=== PATIENT | male | born 1960 | race Caucasian/White ===

== ENCOUNTER 2016-07-20 07:19 | Inpatient (IN) | payer OTHER ==
[2016-07-07 14:22] VITALS: BMI 33.0
--- NOTE | 2016-07-07 14:54 | PAT Medication Instructions ---
Service Date July 07, 2016. Current Home Medication List Diphenhydramine Hcl (Benadryl Allergy), 50 MG PO HS Ibuprofen (Motrin), 3 TAB PO BID PRN for Pain Multiple Vitamin (Multi Vitamin), 1 TAB PO QAM Venlafaxine Hcl (Venlafaxine Hcl Er), 1 TAB PO QAM [legatrim], Unknown Dose PO QPM Medication Instructions For Your Scheduled Surgery - Hold the following medications 24 hours prior to surgery: [legatrim], Unknown Dose PO QPM - Hold the following medications the morning of surgery: Ibuprofen (Motrin), 3 TAB PO BID PRN for Pain (otherwise okay to continue per surgeon) Multiple Vitamin (Multi Vitamin), 1 TAB PO QAM - Take the following medications the morning of surgery with a sip of water OTHERWISE NOTHING TO EAT OR DRINK AFTER MIDNIGHT: Venlafaxine Hcl (Venlafaxine Hcl Er), 1 TAB PO QAM - Take the following medications as scheduled the night before surgery: Ibuprofen (Motrin), 3 TAB PO BID PRN for Pain Diphenhydramine Hcl (Benadryl Allergy), 50 MG PO HS If you have any questions please call us at [phone] or [phone] or [phone]
[2016-07-07 15:21] LABS: BASO % 0.6 %; BASO ABS # 0.03 K/uL (0-0.2); COMPLETE YES; EOS % 2.3 %; HEMATOCRIT 44.2 % (42-52); IG% 0.4 %; LYMPH % 31.7 %; LYMPH ABS # 1.52 K/uL (1.2-3.4); MEAN CELL VOLUME 80.8 fL (80-100); MEAN CORPUSCULAR HEMOGLOBIN 28.5 pg (25-34); MEAN CORPUSCULAR HGB CONC 35.3 g/dl (32-36); MEAN PLATELET VOLUME 8.9 fL (7.4-10.4); MONO % 12.1 %; NEUT % 52.9 %; PLATELET COUNT 193 K/uL (130-400); RED BLOOD COUNT 5.47 M/uL (4.7-6.1); URINE APPEARANCE CLEAR (CLEAR); URINE BILIRUBIN NEG (NEG); URINE COLOR YELLOW; URINE NITRITE NEG (NEG); UROBILINOGEN NEG (NEG)
[2016-07-07 15:26] LABS: MANUAL MICROSCOPIC REQUIRED? NO; REVIEW REQ? NO
[2016-07-07 15:34] LABS: PROTHROMBIN TIME (PATIENT) 10.4 SECONDS (9.0-12.0)
[2016-07-07 15:40] LABS: BUN/CREATININE RATIO 11.1 (10-20); CALCIUM 9.2 mg/dl (8.5-10.1); CREATININE 1.1 mg/dl (0.60-1.40); POTASSIUM 4.3 mmol/L (3.5-5.1)
--- NOTE | 2016-07-07 15:45 | DIAGNOSTIC IMAGING REPORT ---
CHEST PREADMISSION(PA/LAT) CLINICAL HISTORY: PAT preoperative evaluation COMPARISON STUDY: No previous studies for comparison. FINDINGS: The bones soft tissues and hemidiaphragms are normal. The cardiomediastinal silhouette is normal. The lungs are clear. The pulmonary vasculature is normal. IMPRESSION: Negative chest. Electronically signed by: Kal Da Silva M.D. 07/07/2016 3:44 PM Dictated Date/Time: 07/07/2016 3:43 PM
--- NOTE | 2016-07-19 09:47 | HISTORY & PHYSICAL EXAMINATION ---
DATE OF ADMISSION: 07/20/2016 CHIEF COMPLAINT: Back and lower extremity difficulty. Working diagnosis degenerative disc at L5-S1, scheduled for PLIF procedure L5-S1. He has failed all conservative measures, injections, physical therapy, anti-inflammatories, brace treatment, chiropractic treatments. HISTORY OF PRESENT ILLNESS: He has had 4-year duration of pain, visual analog scale 0 to 10. He rates his pain as an 8. There are no red flags for fevers, sweats, chills, or carcinoma. PAST SURGICAL HISTORY: Femur surgery, appendectomy. PAST MEDICAL HISTORY: Anxiety. ALLERGIES: Negative. CURRENT MEDICATIONS: Ibuprofen, Zanaflex and vitamins. REVIEW OF SYSTEMS: Denies any blurred vision, double vision, tinnitus, vertigo. Denies chest pain, palpitations, asthma, wheezing, shortness of breath. No nausea, vomiting. No urgency, frequency, dysuria. Major musculoskeletal chief complaint of back and lower extremity difficulty. OBJECTIVE: GENERAL: He is 5'11, 230. He is in distress. VITAL SIGNS: Blood pressure 140/80, pulse of 80, respiration rate 16. HEAD, EYES, EARS, NOSE, AND THROAT: Pupils react to light and accommodation. Ear, nose and throat clear. CARDIAC: Normal S1, S2, no S3. LUNGS: Clear to auscultation. No rales, rhonchi or wheezing. ABDOMEN: Soft, nontender, no referred pain. No masses or organomegaly. NEUROLOGIC: Intact, 5/5 strength, good sensation, motor ability to all extremities. PSYCHIATRIC: Mentation normal. No depression. He has pain with flexion, extension range of the spine, decrease about 60% per normal. Pain with side bending pain with rotation. Images reviewing demonstrate Modic changes L5-S1, degenerative changes L5-S1. IMPRESSION: Degenerative disc disease L5-S1. DISPOSITION: Includes a PLIF procedure, L5-S1 lumbar spine [facility] on 07/20/2016.
[~2016-07-20] VITALS: Ht 180.3 cm; Wt 109.5 kg
[2016-07-20] VITALS (9 sets, daily range): BP systolic 90–152; BP diastolic 54–96; PULSE 57–102; TEMP 36.4–37; O2SAT 94–100; Ht 180.3 cm; Wt 109.5 kg
[~2016-07-20 07:19] MED LIST: CEFAZOLIN 2000 MG/60 ML D5W 60 ML IV SCH; DIPH1TAB87 PO; IBUP-1428 PO; LACTATED RINGER'S 1000ML 1,000 ML IV SCH; MULT-1027 PO; NSS 1000ML IV SCH; VENL150T33 PO; [UNRECOGNIZED DRUG - OTHER] PO
[2016-07-20] MEDS ORDERED: FENTANYL CITRATE INJ 50 MCG/1 ML 2 ML VIAL ONE ×2 (08:06)
[2016-07-20] MEDS ORDERED: MIDAZOLAM HCL 1 MG/ML 2ML VIAL ONE (08:06)
[2016-07-20] MEDS ORDERED: LACTATED RINGER'S 1000ML 1,000 ML IV PRN (08:31)
[2016-07-20] MEDS ORDERED: ONDANSETRON INJ 2 MG/ML 2 ML VIAL IV PRN ×2 (08:45→13:15)
[2016-07-20] MEDS ORDERED: VANCOMYCIN HCL 1000MG/20ML VIAL ONE (10:29)
[2016-07-20] MEDS ORDERED: GELATIN SPONGE SZ 100 ONE ×2 (10:29→12:06)
[2016-07-20] MEDS ORDERED: BUPIVACAINE/EPINEPHRINE 0.5% MPF 1:200,000 30 ML VIAL ONE (10:29)
[2016-07-20] MEDS ORDERED: BACITRACIN 50000 UNIT VIAL ONE (10:29)
[2016-07-20] MEDS ORDERED: THROMBIN FOR SOLN 20000 UNIT KIT ONE (10:29)
--- NOTE | 2016-07-20 10:44 | History & Physical Bridge Note ---
H&P Re-Evaluation Bridge Note: I have examined the patient, reviewed the History & Physical and in the interval since the performance of the History & Physical I have noted the following changes of clinical significance: No changes noted
[2016-07-20] MEDS ORDERED: LIDOCAINE HCL 2% 2 ML VIAL (20MG/ML) ONE (11:37)
[2016-07-20] MEDS ORDERED: NEOSTIGMINE METHYLSULFATE 5 MG/5 ML SYR ONE (11:37)
[2016-07-20] MEDS ORDERED: DEXAMETHASONE SOD INJ 4 MG/ML VIAL ONE (11:37)
[2016-07-20] MEDS ORDERED: GLYCOPYRROLATE INJ 0.2 MG/ML VIAL ONE (11:37)
[2016-07-20] MEDS ORDERED: ONDANSETRON INJ 2 MG/ML 2 ML VIAL ONE (11:37)
[2016-07-20] MEDS ORDERED: ROCURONIUM BROMIDE 10 MG/ML 5 ML VIAL ONE ×2 (11:37→12:27)
[2016-07-20] MEDS ORDERED: PROPOFOL IV EMULSION 10 MG/ML 20 ML VIAL IV ONE (11:37)
[2016-07-20] MEDS ORDERED: HYDROmorphone INJ 2 MG/ML SYR/VIAL ONE (11:38)
[2016-07-20] MEDS ORDERED: LARYING-O-JET KIT (LTA) ONE ×2 (11:43)
[2016-07-20] MEDS ORDERED: EpHEDrine SULFATE 50MG/5ML SYR ONE (11:49)
--- NOTE | 2016-07-20 13:00 | DIAGNOSTIC IMAGING REPORT ---
INTRAOPERATIVE RADIOGRAPH CLINICAL HISTORY: L5-S1 spinal fusion. Fluoroscopy time: 5 seconds. FINDINGS: A single spot fluoroscopic view of the lumbar spine is presented. There is evidence of discectomy at L5-S1 with laminectomy and posterior fusion at this level. Interpedicular screws are present at both levels. The orthopedic hardware is intact as visualized. IMPRESSION: Intraoperative image from L5 -S1 spinal fusion as above. Electronically signed by: Tunde Castro M.D. 07/20/2016 12:59 PM Dictated Date/Time: 07/20/2016 12:58 PM
[2016-07-20] MEDS ORDERED: IBUPROFEN 800 MG TAB PO PRN (13:15)
[2016-07-20] MEDS ORDERED: LORAZEPAM 1 MG TAB PO PRN (13:15)
[2016-07-20] MEDS ORDERED: MAGNESIUM HYDROXIDE SUSP 30 ML UDC PO PRN (13:15)
[2016-07-20] MEDS ORDERED: PROMETHAZINE HCL INJ 12.5 MG in SODIUM CHLORIDE 0.9% 50ML 50 ML IV PRN (13:15)
[2016-07-20] MEDS ORDERED: ACETAMINOPHEN 325 MG TAB PO PRN (13:15)
[2016-07-20] MEDS ORDERED: LORAZEPAM INJ 1 MG in SYRINGE 0 ML IV PRN (13:15)
[2016-07-20] MEDS ORDERED: METOCLOPRAMIDE HCL INJ 5 MG/ML 2 ML VIAL IV PRN (13:15)
[2016-07-20] MEDS ORDERED: NALOXONE HCL 0.4 MG/1 ML VIAL/CARP IV PRN (13:15)
[2016-07-20] MEDS ORDERED: SODIUM CHLORIDE 0.9% 1000ML 1,000 ML IV SCH (13:15)
--- NOTE | 2016-07-20 13:18 | [facility] Post Operative Brief Note ---
Immediate Operative Summary Operative Date Jul 20, 2016. Pre-Operative Diagnosis Degenerative Disc Disease L5-S1 Post-Operative Diagnosis Degenerative Disc Disease L5-S1 Procedure(s) Performed L5-S1 Posterior Lumbar Interbody Fusion Surgeon Dr. Kaushik Dillon Data Capture Specialist Surgeon(s) Joel Paez PA-C Estimated Blood Loss 100ML Findings degenerative disc Specimens none per surgeon Dr. Kaushik Dillon Complication(s) None Disposition Recovery Room / PACU
[2016-07-20] MEDS ORDERED: HYDROmorphone HCL 0.5MG/ML 50 ML CASSETTE ONE (13:26)
[2016-07-20] MEDS: FENTANYL CITRATE INJ 50 MCG/1 ML 2 ML VIAL IV PRN ×2 (13:27→13:35)
[2016-07-20] MEDS: HYDROmorphone INJ 1 MG/ML SYR IV PRN ×2 (13:46→13:53)
[2016-07-20 13:51] LABS: HEMATOCRIT 40.2 % (42-52)
--- NOTE | 2016-07-20 14:23 | OPERATIVE REPORT ---
DATE OF OPERATION: 07/20/2016 PREOPERATIVE DIAGNOSIS: Degenerative disc disease and bulging disc lumbar spine with instability lumbar spine. POSTOPERATIVE DIAGNOSIS: Same. PROCEDURE: Include post-lumbar interbody fusion L5-S1 lumbar spine. SURGEON: Dr. Dillon. TAX SPECIALIST: Joel Paez PA-C. COMPLICATIONS: Zero. BLOOD LOSS: 100 mL. OPERATION AND FINDINGS: PROCEDURE: The patient was taken the operating room and general intubated anesthetic provided the patient, placed prone, shaved, scrubbed, prepped sterile. We made a skin incision from 4 to the sacrum, down about sacral 2 segment dissecting soft tissue. We took the soft tissue out over the facet joints at L5-S1 on the transverse processes and 5 bilaterally. We then did the decompression part of procedure. We did a complete laminectomy at 5, foraminotomies and partial facetectomies. We then instrumented spine safely and pedicle screw instrumentation L5 and S1 on the lumbar spine using C-arm guidance and anatomic markers to orient our pedicle screws. The fit was anatomic. We then retracted the dura and the nerve root over on the left hand side and did a discectomy and prepared the interspace for interbody fusion. We broached up to a size 9. We then put in a implant, typically called a cage polyethylene ketone spacer, packed with autograft and demineralized bone matrix. We then checked our r x-rays and was excellent. We then irrigated with about 500 mL of fluid, packed bone graft over the transverse process to complete at 360 fusion. We put some vancomycin deep to the wound. We closed fascia to fascia with 1 Vicryl suture, 2-0 in a subcuticular layer, 3-0 nylon on the skin, sterile dressing applied. This was also closed over a Hemovac drain. The patient was then returned supine, extubated to PACU stable. No apparent interoperative complications as stated. Sponge and needle count correct at the close of the procedure. I attest to the content of the Intraoperative Record and any orders documented therein. Any exception s are noted below.
[2016-07-20] MEDS: HYDROmorphone HCL 0.5MG/ML 50 ML CASSETTE IV PRN ×2 (14:45→22:53)
--- NOTE | 2016-07-20 14:52 | Anesthesiology Progress Note ---
Anesthesia Post Op Note Date & Time Jul 20, 2016 at 14:51 Vital Signs Pain Intensity: 0.0 Vital Signs Past 12 Hours Date Time Temp Pulse Resp B/P (MAP) Pulse Ox O2 Delivery O2 Flow Rate FiO2 07/20/16 14:44 36.8 62 18 126/71 (89) 97 Nasal Cannula 2.0 07/20/16 14:29 59 98 07/20/16 14:29 60 12 07/20/16 14:28 133/82 07/20/16 14:24 65 10 07/20/16 14:24 66 10 99 07/20/16 14:22 142/83 07/20/16 14:19 58 07/20/16 14:19 58 10 98 07/20/16 14:18 145/88 07/20/16 14:14 66 12 07/20/16 14:14 63 12 93 07/20/16 14:13 58 16 07/20/16 14:13 58 16 156/80 98 07/20/16 14:08 57 07/20/16 14:08 58 148/76 97 07/20/16 14:03 83 22 138/49 95 07/20/16 14:03 82 22 07/20/16 13:58 63 07/20/16 13:58 65 16 130/59 97 07/20/16 13:57 36.5 07/20/16 13:55 59 16 97 07/20/16 13:55 60 07/20/16 13:53 122/68 07/20/16 13:50 77 14 07/20/16 13:50 79 14 97 07/20/16 13:48 131/59 07/20/16 13:45 57 14 100 07/20/16 13:45 57 07/20/16 13:42 148/77 07/20/16 13:40 60 16 100 07/20/16 13:40 60 07/20/16 13:35 56 14 100 07/20/16 13:35 57 07/20/16 13:32 124/75 07/20/16 13:30 62 8 98 07/20/16 13:30 62 8 07/20/16 13:27 131/71 07/20/16 13:25 80 16 128/62 100 Mask 10 07/20/16 13:25 64 9 97 6/8/17 13:25 64 9 07/20/16 13:24 129/75 07/20/16 13:15 36.5 87 16 126/69 98 Mask 10 07/20/16 07:55 36.6 57 18 152/96 (114) 100 Room Air Notes Mental Status: alert / awake / arousable, participated in evaluation Pt Amnestic to Procedure: Yes Nausea / Vomiting: adequately controlled Pain: adequately controlled Airway Patency, RR, SpO2: stable & adequate BP & HR: stable & adequate Hydration State: stable & adequate Anesthetic Complications: no major complications apparent Pt doing well.
[2016-07-20] MEDS: KETOROLAC TROMETHAMINE 30 MG/ML VIAL IV SCH ×2 (16:06→22:06)
[2016-07-20] MEDS: SODIUM CHLORIDE 0.9% 1000ML 1,000 ML IV SCH (16:06)
[2016-07-20] MEDS: CEFAZOLIN IV 2,000 MG in DEXTROSE 5% 50ML 50 ML IV SCH (18:46)
[2016-07-20] MEDS: DEXAMETHASONE INJ 10 MG in SYRINGE 0 ML IV SCH (19:49)
[2016-07-20] MEDS ORDERED: COUGH DROP (SUGAR FREE) LOZ 24 LOZ/1 BOX ONE (22:29)
[2016-07-20] MEDS ORDERED: COUGH DROP (SUGAR FREE) LOZ 24 LOZ/1 BOX PO PRN (22:45)
[2016-07-21] VITALS (7 sets, daily range): BP systolic 105–138; BP diastolic 58–73; PULSE 68–86; TEMP 36.7–36.8; O2SAT 92–97
[2016-07-21] MEDS: CEFAZOLIN IV 2,000 MG in DEXTROSE 5% 50ML 50 ML IV SCH ×2 (03:05→12:07)
[2016-07-21] MEDS: SODIUM CHLORIDE 0.9% 1000ML 1,000 ML IV SCH (03:06)
[2016-07-21] MEDS: DEXAMETHASONE INJ 10 MG in SYRINGE 0 ML IV SCH ×3 (03:58→19:52)
[2016-07-21] MEDS: KETOROLAC TROMETHAMINE 30 MG/ML VIAL IV SCH ×3 (03:58→15:09)
[2016-07-21] MEDS ORDERED: BISACODYL 10 MG SUPP PR PRN (06:00)
[2016-07-21] MEDS ORDERED: BISACODYL 5 MG TABEC PO PRN (06:00)
[2016-07-21] MEDS: HYDROmorphone HCL 0.5MG/ML 50 ML CASSETTE IV PRN (06:53)
[2016-07-21] MEDS ORDERED: NURSING VERBAL MED ORDER ONE (07:30)
[2016-07-21] MEDS ORDERED: HYDROmorphone INJ 1 MG/ML SYR IV PRN ×2 (08:00)
[2016-07-21] MEDS ORDERED: OXYCODONE/ACETAMINOPHEN 5-325 TAB PO PRN (08:00)
[2016-07-21] MEDS ORDERED: DC PCA ONE (08:00)
--- NOTE | 2016-07-21 08:06 | PROGRESS NOTE ---
DATE: 07/21/2016 DATE: 07/21/2016. SUBJECTIVE: Moderate complaints of pain. No lower extremity difficulty. Denies chest pain, shortness of breath, any confusion, weakness. OBJECTIVE: Vital signs stable, 40.2 hematocrit, moves all extremities. Alert, oriented. ASSESSMENT: Status post lumbar spinal fusion, posterior lumbar interbody fusion at L5-S1, doing well in the short run. DISPOSITION: Includes ambulation here today, discharge home tomorrow. Instructions, precautions provided.
[2016-07-21] MEDS: POLYETHYLENE (MIRALAX) 17 GM PACK PO SCH (09:00)
[2016-07-21] MEDS: MULTIVITAMIN TAB PO SCH (09:06)
[2016-07-21] MEDS: VENLAFAXINE HCL XR 150 MG CAPXR PO SCH (09:06)
[2016-07-21] MEDS: OXYCODONE/ACETAMINOPHEN 5-325 TAB PO PRN ×2 (13:10→18:11)
[2016-07-22] MEDS: OXYCODONE/ACETAMINOPHEN 5-325 TAB PO PRN ×2 (00:32→08:41)
[2016-07-22] MEDS: DEXAMETHASONE INJ 10 MG in SYRINGE 0 ML IV SCH (03:58)
[2016-07-22 06:36] VITALS: BP 152/89; PULSE 81; TEMP 36.4; O2SAT 96
--- NOTE | 2016-07-22 08:09 | Discharge Instructions ---
Discharge Instructions Date of Service Jul 22, 2016. Admission Reason for Admission: Intervertebral Disc Disorder Discharge Discharge Diagnosis / Problem: as above Discharge Goals Goal(s): Improve function Activity Recommendations Activity Limitations: as noted below Lifting Limitations: until after follow-up appointment Exercise/Sports Limitations: until after follow-up appointment May Resume Sexual Activity: after follow-up appointment Shower/Bathe: keep incision dry . Instructions / Follow-Up Instructions / Follow-Up MEDICATIONS: Please take your prescriptions as instructed at your pre-op appointment. SPECIAL CARE: The following information is intended to answer some of the common questions and concerns regarding your surgery. Each patient is an individual and receives individual counselling throughout the course of treatment, from diagnosis to surgery all the way through recovery. What follows is not an exhaustive list, but should be a useful guide to some of the common questions and concerns patients have regarding their surgeries. These are not provided to keep you from calling us; rather, they give you something accurate and concrete to reference as you recover from your procedure. If you need us, we are available to you. As always, if you are not sure about something, call us at [phone]. MEDICAL EMERGENCIES: For these conditions, call 911 or go to your local hospital-based Emergency Department - not [facility] or equivalent. * Paralysis * Severe chest pain or difficulty breathing * Swelling or redness of either leg Spine procedures can be rather complex and though complications are rare, they do occur. In such cases, effective advice regarding emergency situations cannot always be addressed over the telephone. You may be referred to the emergency department for more effective management of your problem. Activity Limitations: It is important to give your body time to heal, so please limit your activities : * In general, don't do anything that moves your spine too much. You should avoid contact sports, twisting or heavy lifting while you recover. * 5-10 pounds is all you should attempt to lift. * You should not plan on driving for approximately 3 weeks and you should avoid traveling more than 30-45 minutes at a time. Longer trips should be broken down with walking breaks spaced appropriately. * Physical therapy is not usually required. * Walking and good posture practices will help you recover and regain your function. * Avoid straining or sudden changes in position. * In general, the goal is to take it easy and recover. Don't cause any new problems. Just relax. Showers: * Do not take a bath, use a Jacuzzi or hot tub or otherwise submerge your incision. * It is usually safe to take a shower 4-5 days after your surgery. * Your incision does not require any special creams or ointments. * Simply clean it with soap and water, dry and re-dress with a clean bandage afterwards. Incision: * Keep incision clean, dry and protected until your first follow-up appointment. * Some amount of drainage and redness is normal. Any drainage should be fairly clear and not have a foul odor. * If you feel anything is wrong or you have excessive drainage, please call us. * Your stitches and jose elias will be removed 10-14 days after your surgery. At the time of your first post-op visit. * Neck surgeries are typically closed with a suture underneath the skin. The steri-strips over the incision should be maintained until we see you in the office. Bracing: * You may be provided with a back or neck brace to encourage good posture and prevent injury. It will remind you not to do too much as you heal and will alert others to the fact that you have had a surgery. * Back braces may be removed for showers and when you are resting at home. They must be worn when you are walking around for any period of time or for travel. * For neck surgery, you will likely be provided with two cervical collars. The soft collar (Brush or foam rubber) is worn most commonly throughout the day and while sleeping. The plastic collar (provided at the hospital) is for showering/bathing. * Except while eating, collars should remain in place. More specifically, bracing is provided for a purpose and should be worn. * Please obtain your brace or collars prior to your operation and bring them to the hospital with you on the day of surgery. * You should also bring your collars to your post-op appointment with Dr. Dillon. You should always take good care of your body and practice healthy habits, especially following surgery. You should: * Follow your doctor's treatment plan * Sit and stand properly with good posture (ears over shoulders, shoulders over hips) Don't slouch * Learn to lift correctly * Exercise regularly (low-impact aerobic exercise is especially good, but check with your doctor first) * Generally, be up and walking for 5-10 minutes at a time at least 3-4 times per day from the day you get home * Increasing walking to tolerance until you can walk for 20-30 minutes at a time * Attain and maintain a healthy body weight * Eat healthy foods ( a well-balanced, low-fat diet rich in fruits and vegetables) and get enough calcium * Avoid excessive use of alcohol When to call our office - If you notice any of the following: * Increased pain not relieve by pain medicine * Fevers greater then 100 degrees F, chills or flu symptoms * Increased redness around incision * Drainage from the incision that is not clear * Any foul smelling drainage * Swelling or fluid collection beneath the skin Miscellaneous: * In the hospital, you may be given a walker or cane for support while walking. These are temporary needs and are intended to prevent injuries due to falls. You may discontinue them when you feel strong and steady enough on your feet. * Sleep in a comfortable position. We find that many patients find a lounge chair or recliner with several pillows to be beneficial in the early post-operative period. * The support stockings should be used for 7-10 days and may be discontinued when you are back to walking more and conducting usual household activities. No problem is insignificant. We are here to help you and get you well. Contact us at [phone]. Definitions: Foraminotomy: If part of the disc or a bone spur (osteophyte) is pressing on a nerve as it leaves the vertebra (through an exit called the foramen), a foraminotomy may be done. Otomy means "to make an opening." A foraminotomy is making the opening of the foramen larger, so the nerve can exit without being compressed. Laminotomy: Similar to the foraminotomy, a laminotomy makes a larger opening, this time in your bony plate protecting your spinal canal and spinal cord (the lamina). The lamina may be pressing on your nerve, so the surgeon may make more room for the nerves using a laminotomy. Laminectomy: Sometimes, a laminotomy is not sufficient. The surgeon may need to remove all or part of the lamina. This procedure is called a laminectomy. This can often be done at many levels without any harmful effects. Current Hospital Diet Patient's current hospital diet: Regular Diet Discharge Diet Recommended Diet: Regular Diet Procedures Procedures Performed: L5-S1 Posterior Lumbar Interbody Fusion Pending Studies Studies pending at discharge: no Medical Emergencies . Who to Call and When: Medical Emergencies: If at any time you feel your situation is an emergency, please call 911 immediately. . Non-Emergent Contact Non-Emergency issues call your: Surgeon Call Non-Emergent contact if: your pain is unusual for you, you have any medication questions . "Provider Documentation" section prepared by Kaushik Dillon. . VTE Core Measure Inpt VTE Proph given/why not?: Treatment not indicated
[2016-07-22] MEDS: POLYETHYLENE (MIRALAX) 17 GM PACK PO SCH (08:15)
[2016-07-22 08:19] VITALS: BP 152/89; PULSE 81; TEMP 36.4; O2SAT 96
[2016-07-22] MEDS: VENLAFAXINE HCL XR 150 MG CAPXR PO SCH (08:41)
[2016-07-22] MEDS: MULTIVITAMIN TAB PO SCH (08:42)
--- NOTE | 2016-07-22 09:02 | DISCHARGE SUMMARY ---
SUBJECTIVE: Moderate complaints of pain. Alert, oriented, no chest pain, shortness of breath or lower extremity difficulty. OBJECTIVE: VITAL SIGNS: 36.4 temperature, blood pressure controlled. Pulse 80. Labs not indicated. ASSESSMENT: Status post reconstructive spinal surgery posterior lumbar interbody fusion L5-S1. DISPOSITION: Will discharge him home this morning. He has prescriptions on his chart. He has walkers at home. He has a back brace. He has instructions and precautions given here in the hospital and from the office, careful and we will see him back in about 2 weeks.
== END 2016-07-22 09:43 | disposition home or self-care (01) | DRG 460 ==
LOC: C.ACU 07:19 → C.3E 08:15 → ENRESERV 14:12
PROVIDERS: ADMIT Orthopaedic Surgery Orthopaedic Surgery of the Spine; ATTEND Orthopaedic Surgery Orthopaedic Surgery of the Spine
PROC: 0SG30A1 (ICD-10-PCS; principal; 2016-07-20 09:00)
PROC: 0ST40ZZ Resection of Lumbosacral Disc, Open Approach (ICD-10-PCS; principal; 2016-07-20 09:00)
DX: M51.37 Other intervertebral disc degeneration, lumbosacral region (principal)

== ENCOUNTER 2017-09-04 16:14 | Emergency (ER) | payer OTHER ==
[~2017-09-04] VITALS: Ht 180.3 cm; Wt 109.4 kg
[~2017-09-04 16:14] MED LIST changes: -CEFAZOLIN 2000 MG/60 ML D5W 60 ML IV SCH; -LACTATED RINGER'S 1000ML 1,000 ML IV SCH; -NSS 1000ML IV SCH
[2017-09-04 16:19] VITALS: TEMP 36.9; Ht 180.3 cm; Wt 109.4 kg
[2017-09-04] MEDS ORDERED: SODIUM CHLORIDE 0.9% 1000ML 1,000 ML IV STA (16:38)
[2017-09-04 17:08] LABS: BASO % 0.8 %; BASO ABS # 0.04 K/uL (0-0.2); EOS % 2.5 %; EOS ABS # 0.13 K/uL (0-0.5); HEMATOCRIT 45.8 % (42-52); HEMOGLOBIN 16.6 g/dL (14.0-18.0); IG# 0.01 K/uL (0.00-0.02); LYMPH % 36.1 %; LYMPH ABS # 1.84 K/uL (1.2-3.4); MEAN CELL VOLUME 80.4 fL (80-100); MEAN CORPUSCULAR HEMOGLOBIN 29.1 pg (25-34); MEAN CORPUSCULAR HGB CONC 36.2 g/dl (32-36); MEAN PLATELET VOLUME 9.1 fL (7.4-10.4); MONO % 12.5 %; MONO ABS # 0.64 K/uL (0.11-0.59); NEUT % 47.9 %; NEUT ABS # 2.44 K/uL (1.4-6.5); PLATELET COUNT 190 K/uL (130-400); RED CELL DISTRIBUTION WIDTH CV 12.7 % (11.5-14.5); RED CELL DISTRIBUTION WIDTH SD 36.6 fL (36.4-46.3)
--- NOTE | 2017-09-04 17:11 | DIAGNOSTIC IMAGING REPORT ---
ABD/PELVIS WITHOUT FOR STONE CT DOSE: 1563.97 mGy.cm HISTORY: Flank pain left flank pain TECHNIQUE: Multiaxial CT images of the abdomen and pelvis were performed without the use of intravenous and oral contrast according to the standard department stone protocol. A dose lowering technique was utilized adhering to the principles of ALARA. COMPARISON STUDY: None. FINDINGS: The lung bases are clear. The unenhanced liver,, spleen, pancreas, and adrenal glands are unremarkable. No renal stones or hydronephrosis. No bowel wall thickening or obstruction. Small gallstone within the gallbladder fundus. The pelvic organs are unremarkable. No suspicious lytic or blastic osseous lesions. IMPRESSION: No renal stones or hydronephrosis. No acute process of the abdomen or pelvis. note is made of a small gallstone in the region of the gallbladder fundus. The above report was generated using voice recognition software. It may contain grammatical, syntax or spelling errors. Electronically signed by: Kal Da Silva M.D. 09/04/2017 5:10 PM Dictated Date/Time: 09/04/2017 5:04 PM
[2017-09-04] MEDS ORDERED: GI COCKTAIL PO STA (17:18)
--- NOTE | 2017-09-04 17:18 | EMERGENCY ROOM VISIT NOTE ---
History First contact with patient: 16:22 Chief Complaint: BACK PAIN Stated Complaint: BACK PAIN UNDER RIBS History of Present Illness The patient is a 57 year old male who presents to the Emergency Room with complaints of left flank pain which began 4 days ago. The patient states the pain has been progressively getting worse since Sunday night. The pain does seem to be worse when lying flat or on the left side and seems to radiate around toward the front of his abdomen. He states it feels "like my ribs are broken ankle. The patient states he feels like he has needed to try to burp, which does relieve the pain. The patient does have a history of kidney stones, and states his pain associated with that was much worse. He states he continues to eat and denies any food related symptoms. He has taken no pain medications. He denies any urinary symptoms including hematuria, urinary frequency, urinary hesitancy, or dysuria. He denies any constipation or diarrhea. He denies any rash or open wounds. He denies any injury Review of Systems A complete 10 point review of systems was reviewed with the patient with pertinent positives and negatives as per history of present illness. All else were negative. Past Medical/Surgical History Medical Problems: (1) Degenerative disc disease, lumbar Social History Smoking Status: Never Smoker Smokeless Tobacco Use: No Alcohol Use: occasionally Drug Use: none Housing Status: lives with family Occupation Status: employed Current/Historical Medications Scheduled Diphenhydramine Hcl (Benadryl Allergy), 50 MG PO HS Famotidine (Pepcid), 1 TAB PO BID Valacyclovir Hcl (Valtrex), 1 TAB PO TID Scheduled PRN Ibuprofen (Motrin), 3 TAB PO BID PRN for Pain Physical Exam Vital Signs Date Time Temp Pulse Resp B/P (MAP) Pulse Ox O2 Delivery O2 Flow Rate FiO2 09/04/17 19:26 60 18 148/91 99 09/04/17 17:37 78 16 140/77 97 Room Air 09/04/17 16:19 36.9 89 20 126/77 99 Room Air Physical Exam VITALS: Vitals are noted on the nurse's note and reviewed by myself. Vital signs stable. GENERAL: This is a 57-year-old white male, in no acute distress, nondiaphoretic , well-developed well-nourished. SKIN: The skin was without rashes, erythema, edema, or bruising. There is no tenting of the skin. Capillary reflex less than 2 seconds. HEAD: Normocephalic atraumatic. EARS: External auditory canals clear, tympanic membranes pearly arias without erythema or effusion bilaterally. EYES: Pupils equal round and reactive to light and accommodation. Conjunctivae without injection, sclerae without icterus. Extraocular movements intact. NOSE: Patent, turbinates without inflammation or discharge. No sinus tenderness. MOUTH: Mucous membranes moist. Tonsils are not enlarged. Pharynx without erythema or exudate. Uvula midline. Airway patent. Tongue does not deviate. NECK: Supple without nuchal rigidity. No lymphadenopathy. No thyromegaly. Cervical spine is nontender. No JVD. HEART: Regular rate and rhythm without murmurs gallops or rubs. LUNGS: Clear to auscultation bilaterally without wheezes, rales or rhonchi. No dullness to percussion. No retractions or accessory muscle use. ABDOMEN: Positive bowel sounds x 4. Normal tympanic percussion. Soft, nontender, without masses or organomegaly. Rai sign negative. No guarding or rebound tenderness. No CVA tenderness. MUSCULOSKELETAL: No muscle atrophy, erythema, or edema noted. Mild tenderness of the left flank radiating around toward the anterior abdomen. Full range of motion without joint tenderness in all extremities. No tenderness to palpation. Normal gait. Strength 5/5 throughout. NEURO: Patient was alert and oriented to person place and time. Normal sensation to light and sharp touch. Deep tendon reflexes 2+ throughout. No focal neurological deficits. Medical Decision & Procedures ER Provider Diagnostic Interpretation: ABD/PELVIS WITHOUT FOR STONE CT DOSE: 1563.97 mGy.cm HISTORY: Flank pain left flank pain TECHNIQUE: Multiaxial CT images of the abdomen and pelvis were performed without the use of intravenous and oral contrast according to the standard department stone protocol. A dose lowering technique was utilized adhering to the principles of ALARA. COMPARISON STUDY: None. FINDINGS: The lung bases are clear. The unenhanced liver,, spleen, pancreas, and adrenal glands are unremarkable. No renal stones or hydronephrosis. No bowel wall thickening or obstruction. Small gallstone within the gallbladder fundus. The pelvic organs are unremarkable. No suspicious lytic or blastic osseous lesions. IMPRESSION: No renal stones or hydronephrosis. No acute process of the abdomen or pelvis. note is made of a small gallstone in the region of the gallbladder fundus. The above report was generated using voice recognition software. It may contain grammatical, syntax or spelling errors. Electronically signed by: Kal Da Silva M.D. 09/04/2017 5:10 PM Dictated Date/Time: 09/04/2017 5:04 PM Laboratory Results 09/04/17 16:45 Red Blood Count 5.70, Mean Corpuscular Volume 80.4, Mean Corpuscular Hemoglobin 29.1, Mean Corpuscular Hemoglobin Concent 36.2, Mean Platelet Volume 9.1, Neutrophils (%) (Auto) 47.9, Lymphocytes (%) (Auto) 36.1, Monocytes (%) (Auto) 12.5, Eosinophils (%) (Auto) 2.5, Basophils (%) (Auto) 0.8, Neutrophils # (Auto ) 2.44, Lymphocytes # (Auto) 1.84, Monocytes # (Auto) 0.64, Eosinophils # (Auto ) 0.13, Basophils # (Auto) 0.04 09/04/17 16:45 Test 09/04/17 16:45 09/04/17 17:25 White Blood Count 5.10 K/uL (4.8-10.8) Red Blood Count 5.70 M/uL (4.7-6.1) Hemoglobin 16.6 g/dL (14.0-18.0) Hematocrit 45.8 % (42-52) Mean Corpuscular Volume 80.4 fL (80-100) Mean Corpuscular Hemoglobin 29.1 pg (25-34) Mean Corpuscular Hemoglobin Concent 36.2 g/dl (32-36) Platelet Count 190 K/uL (130-400) Mean Platelet Volume 9.1 fL (7.4-10.4) Neutrophils (%) (Auto) 47.9 % Lymphocytes (%) (Auto) 36.1 % Monocytes (%) (Auto) 12.5 % Eosinophils (%) (Auto) 2.5 % Basophils (%) (Auto) 0.8 % Neutrophils # (Auto) 2.44 K/uL (1.4-6.5) Lymphocytes # (Auto) 1.84 K/uL (1.2-3.4) Monocytes # (Auto) 0.64 K/uL (0.11-0.59) Eosinophils # (Auto) 0.13 K/uL (0-0.5) Basophils # (Auto) 0.04 K/uL (0-0.2) RDW Standard Deviation 36.6 fL (36.4-46.3) RDW Coefficient of Variation 12.7 % (11.5-14.5) Immature Granulocyte % (Auto) 0.2 % Immature Granulocyte # (Auto) 0.01 K/uL (0.00-0.02) Anion Gap 7.0 mmol/L (3-11) Est Creatinine Clear Calc Drug Dose 89.7 ml/min Estimated GFR () 80.9 Estimated GFR (Non- 69.8 BUN/Creatinine Ratio 9.9 (10-20) Calcium Level 9.7 mg/dl (8.5-10.1) Total Bilirubin 0.5 mg/dl (0.2-1) Aspartate Amino Transf (AST/SGOT) 14 U/L (15-37) Alanine Aminotransferase (ALT/SGPT) 32 U/L (12-78) Alkaline Phosphatase 86 U/L (45-117) Total Protein 7.7 gm/dl (6.4-8.2) Albumin 4.2 gm/dl (3.4-5.0) Globulin 3.5 gm/dl (2.5-4.0) Albumin/Globulin Ratio 1.2 (0.9-2) Urine Color YELLOW Urine Appearance CLEAR (CLEAR) Urine pH 5.5 (4.5-7.5) Urine Specific [place] 1.020 (1.000-1.030) Urine Protein NEG (NEG) Urine Glucose (UA) TRACE (NEG) Urine Ketones NEG (NEG) Urine Occult Blood NEG (NEG) Urine Nitrite NEG (NEG) Urine Bilirubin NEG (NEG) Urine Urobilinogen NEG (NEG) Urine Leukocyte Esterase NEG (NEG) Medications Administered Medications (Trade) Dose Ordered Sig/Fabio Route Start Time Stop Time Status Last Admin Dose Admin Sodium Chloride 1,000 ml @ 999 mls/hr Q1H1M STAT IV 09/04/17 16:38 09/04/17 17:38 DC 09/04/17 16:51 999 MLS/HR Al Hydroxide/Mg Hydroxide (Maalox Susp) 30 ml STK-MED ONCE .ROUTE 09/04/17 17:34 09/04/17 17:35 DC 09/04/17 17:36 30 ML Lidocaine HCl (Viscous Lidocaine 2% Soln) 20 ml STK-MED ONCE .ROUTE 09/04/17 17:34 09/04/17 17:35 DC 09/04/17 17:35 20 ML ECG Per My Interpretation Indication: abdominal pain Rate (beats per minute): 58 Rhythm: sinus bradycardia Findings: no acute ischemic change, no ectopy Comparison ECG Date: 07/07/2016 Change: no significant change ED Course The patient was seen and evaluated as above. IV access obtained, labs drawn. EKG performed and interpreted by myself as above. Imaging performed and reviewed by myself and radiologist as above. Labs reviewed by myself. I discussed the findings with the patient at bedside. I discussed the case with my attending. Troponin ordered. This test was cancelled by lab. Discharge instructions reviewed, the patient was discharged home in good condition. Medical Decision This is a 57-year-old male patient presents the emergency department today complaining of left flank pain. The patient pain has been worsening especially at night since Sunday evening. The patient states lying on his left side does seem to worsen the symptoms. He denies any aggravating, alleviating, or precipitating factors. Patient taken no pain medications. He denies any injury. He does state that burping seems to relieve some of the pain. Here in the emergency department, his workup was overall negative. There is no leukocytosis, anemia, thrombocytopenia. There is no renal, hepatic, electrolyte abnormality. Urinalysis was negative for signs of infection or blood. EKG negative for obvious cardiac etiology. Troponin was ordered, but cancelled by lab. CT scan of the abdomen was negative for stone or other acute pathology. Patient was given a GI cocktail with gastritis. He did not experience significant improvement in his symptoms. While there is no rash, I am highly suspicious for shingles, based on the patient's history and symptoms. He will be treated at this time for possible gastritis, but advised to watch closely for development of a rash, and was instructed to take Valtrex as directed if he does notice a rash. He was advised to follow-up closely with his PCP later this week. He was concerned for possible inability to obtain an appointment, so the family preservation caseworker was asked to follow-up with the patient tomorrow to ensure he was able to get an appointment. Questions answered to patient's satisfaction. Etiologies such as appendicitis, diverticulitis, obstruction, inflammatory bowel disease, renal colic, PUD, biliary pathology, pancreatitis, mesenteric ischemia, aortic pathology, infections, genitourinary, UTI, perforated viscus, as well as others were entertained. The chart was completed utilizing [employer] Speech voice recognition software. Grammatical errors, random word insertions, pronoun errors, and incomplete sentences are an occasional consequence of this system due to software limitations, ambient noise, and hardware issues. Any formal questions or concerns about the content, text, or information contained within the body of this dictation should be directly addressed to the provider for clarification. Medication Reconcilliation Current Medication List: was personally reviewed by me Blood Pressure Screening Patient's blood pressure: Normal blood pressure Impression Primary Impression: Left flank pain Additional Impression: Gastritis Departure Information Dispostion Home / Self-Care Condition GOOD Prescriptions Valacyclovir Hcl (VALTREX) 1 Gm Tab 1 TAB PO TID for 7 Days, #21 TAB Prov: Carmina Woo PA-C 09/04/17 Famotidine (PEPCID) 20 Mg Tab 1 TAB PO BID, #60 TAB Prov: Carmina Woo PA-C 09/04/17 Referrals Tunde Dickey D.O. (PCP) Patient Instructions ED Gastritis, ED Shingles, My [facility] Additional Instructions You have been treated in the Emergency Department your Abdominal Pain. Laboratory results and imaging studies have ruled out any emergent causes for your abdominal pain which would warrant admission or surgery. As discussed, I suspect possible gastritis versus early shingles as the cause of your symptoms. Take Pepcid 20 mg twice daily for the next week for your symptoms. This will help with gastritis. If you break out into a rash or blisters, begin taking the Valtrex 3 times daily as prescribed. For pain control, you can use the following [id number] medicines (if >12 yo): Acetaminophen(Tylenol) may be used for fever or pain. Use 1000mg every six hours as needed. Avoid using more than 3000mg in a 24 hour period. Drink plenty of water and stay well hydrated. He may want to eat a bland diet to help with abdominal discomfort. As with any trip to the Emergency Department, you should follow-up with your Primary Care Provider from today's visit. I do recommend follow-up this week. Return to the emergency department if your symptoms persist despite treatment plan outlined above or if the following symptoms occur: increased fevers, chills , worsening nausea/vomiting, blood in your stool or urine. Problem Qualifiers Additional Impression: Gastritis Gastritis type: unspecified gastritis Chronicity: acute Gastritis bleeding : without bleeding Qualified Codes: K29.00 - Acute gastritis without bleeding
[2017-09-04 17:28] LABS: ALBUMIN 4.2 gm/dl (3.4-5.0); CALCIUM 9.7 mg/dl (8.5-10.1); CREATININE 1.17 mg/dl (0.60-1.40); POTASSIUM 3.7 mmol/L (3.5-5.1); TOTAL PROTEIN 7.7 gm/dl (6.4-8.2)
[2017-09-04] MEDS ORDERED: LIDOCAINE HCL 2% VISC SOLN 20 ML UDC ONE (17:34)
[2017-09-04] MEDS ORDERED: ALUMINUM/MAGNESIUM SUSP 30 ML UDC ONE (17:34)
[2017-09-04] MEDS ORDERED: FAMO20TA9 PO (18:58)
[2017-09-04] MEDS ORDERED: VALA1TAB31 PO (18:58)
[2017-09-04 19:26] VITALS: BP 148/91; PULSE 60; O2SAT 99
== END 2017-09-04 19:27 | disposition home or self-care (01) ==
LOC: C.EDB 16:16
DX: R10.9 Unspecified abdominal pain (principal); K29.00 Acute gastritis without bleeding; M51.36 Other intervertebral disc degeneration, lumbar region; Z79.899 Other long term (current) drug therapy